=== PATIENT | male | born 1990 | race African-American/Black ===

== ENCOUNTER 2017-01-28 15:57 | Emergency (ER) | payer OTHER ==
[2017-01-28 16:06] VITALS: BP 136/88; PULSE 73; TEMP 98.4; BMI 18.7
[2017-01-28] MEDS ORDERED: IBUPROFEN 600 MG TABLET (FP) PO ONE ×2 (16:40→16:47)
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
== END 2017-01-28 16:59 | disposition home or self-care (01) ==
LOC: JERFT 15:57
DX: S39.012A Strain of muscle, fascia and tendon of lower back, initial encounter (principal); S16.1XXA Strain of muscle, fascia and tendon at neck level, initial encounter; V49.59XA Passenger injured in collision with other motor vehicles in traffic accident, initial encounter; Y92.488 Other paved roadways as the place of occurrence of the external cause; Y93.89 Activity, other specified; Y99.8 Other external cause status
CPT/HCPCS: 99281-25